=== PATIENT | female | born 2000 | race Caucasian/White ===

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

== ENCOUNTER → 2018-11-16 | Outpatient (REF) | payer MEDICAID ==
[2018-11-16 20:19] LABS: FREE T4 1.37 NG/DL (0.78-1.33); THYROID STIMULATING HORMONE 2.4 uIU/ML (0.463-3.98)
== END ==
LOC: M SFHCADAM 14:18
PROVIDERS: ATTEND Physician Assistant Medical
DX: E06.3 Autoimmune thyroiditis (principal)

== ENCOUNTER → 2018-11-30 | Outpatient (REF) | payer MEDICAID | LOC: M SFHCADAM 12:28 | PROVIDERS: ATTEND Family Medicine | DX: J02.9 Acute pharyngitis, unspecified (principal) ==

== ENCOUNTER → 2018-12-08 | Outpatient (REF) | payer MEDICAID | LOC: M SFHCADAM 12:23 | PROVIDERS: ATTEND Physician Assistant | DX: N30.00 Acute cystitis without hematuria (principal) ==

== ENCOUNTER → 2019-01-01 | Outpatient (REF) | payer MEDICAID | LOC: M SFHCADAM 16:00 | PROVIDERS: ATTEND Physician Assistant Medical | DX: N91.2 Amenorrhea, unspecified (principal) ==

== ENCOUNTER 2019-03-04 16:11 | Emergency (ER) | payer MEDICAID ==
[~2019-03-04] VITALS: Ht 157.5 cm; Wt 75.0 kg
[2019-03-04] MEDS ORDERED: [UNRECOGNIZED DRUG - OTHER] VI (16:19)
[2019-03-04] MEDS ORDERED: LEVO112T2 PO (16:19)
[2019-03-04] MEDS ORDERED: AZO-95TA3 PO (16:19)
[2019-03-04 16:39] LABS: BILIRUBIN, URINE MANUAL OBSCURED (NEGATIVE); GLUCOSE, URINE (UA) MANUAL OBSCURED mg/dL (NEGATIVE); KETONE, URINE MANUAL OBSCURED mg/dL (NEGATIVE); UROBILINOGEN, URINE MANUAL OBSCURED mg/dl (NORMAL)
[2019-03-04 16:41] LABS: URINE PREG TEST NEGATIVE (NEGATIVE)
[2019-03-04 16:42] LABS: BACTERIA, URINE SMALL AMOUNT; RBC, URINE 0-1 /hpf (0-3)
[2019-03-04] MEDS ORDERED: NS 1,000 ML IV ONE (16:45)
[2019-03-04 17:28] LABS: BASO % 0.7 % (0.0-1.0); EOS # 0.1 10^3/uL (0.0-0.5); HEMATOCRIT 38.8 % (36.0-47.0); HEMOGLOBIN 12.4 g/dl (12.0-15.5); LYMPH # 1.3 10^3/uL (1.5-5.0); LYMPH % 23.3 % (24.0-44.0); MEAN CORPUSCULAR HEMOGLOBIN 28.2 pg (27.0-33.0); MEAN CORPUSCULAR VOLUME 88.4 fl (80.0-96.0); MONO # 0.6 10^3/uL (0.0-0.8); MONO % 10.1 % (0.0-5.0); NEUTROPHILS # 3.5 10^3/uL (1.5-8.5); NEUTROPHILS % 63.7 % (36.0-66.0); PLATELET COUNT, AUTOMATED 245 10^3/uL (150-450); RED BLOOD COUNT 4.39 10^6/uL (4.00-5.40); WHITE BLOOD COUNT 5.5 10^3/uL (4.0-10.0)
[2019-03-04 17:58] LABS: ALBUMIN 3.9 GM/DL (3.2-5.2); ALT/SGPT 16 U/L (12-78); BILIRUBIN,DIRECT 0.2 MG/DL (0.0-0.2); BILIRUBIN,TOTAL 0.5 MG/DL (0.2-1.0); BLOOD UREA NITROGEN 13 MG/DL (7-18); CALCIUM LEVEL 9.1 MG/DL (8.5-10.1); CARBON DIOXIDE LEVEL 26 MEQ/L (21-32); CHLORIDE LEVEL 107 MEQ/L (98-107); CREATININE FOR GFR 0.94 MG/DL (0.55-1.30); GLUCOSE, FASTING 89 MG/DL (70-100); LIPASE 154 U/L (73-393); POTASSIUM SERUM 4.3 MEQ/L (3.5-5.1); SODIUM LEVEL 140 MEQ/L (136-145); TOTAL PROTEIN 7.6 GM/DL (6.4-8.2)
--- NOTE | 2019-03-04 18:27 | REPVR ---
PROCEDURE INFORMATION: Exam: CT Abdomen And Pelvis Without Contrast Exam date and time: 03/04/2019 5:01 PM Age: 18 years old Clinical indication: Abdominal pain; Flank; Left; Additional info: Left flank pain TECHNIQUE: Imaging protocol: Computed tomography of the abdomen and pelvis without contrast. Radiation optimization: All CT scans at this facility use at least one of these dose optimization techniques: automated exposure control; mA and/or kV adjustment per patient size (includes targeted exams where dose is matched to clinical indication); or iterative reconstruction. COMPARISON: CT ABD PELVIS WITH CONTRAST 05/15/2013 6:26 PM FINDINGS: Lungs: No lesions of the lung bases. Heart: There may be a pericardial effusion. Series 202 image 37, series 2 image 63. Liver: There are no focal liver lesions present. Gallbladder and bile ducts: The gallbladder is normal. Pancreas: The pancreas is normal. Spleen: The spleen is normal. Adrenals: The adrenal glands are normal. Kidneys and ureters: No renal calculi or hydronephrosis. The kidneys are normal. Stomach and bowel: There is no evidence of intestinal obstruction. Appendix: There may be surgical sutures along the medial cecum possibly post appendectomy. Intraperitoneal space: Unremarkable. No free air. No significant fluid collection. Vasculature: The aorta is normal. Lymph nodes: Unremarkable. No enlarged lymph nodes. Bladder: The bladder is unremarkable. Reproductive: Uterus and adnexa are not well assessed. Bones/joints: Unremarkable. No acute fracture. Soft tissues: Unremarkable. IMPRESSION: No acute findings in the abdomen or pelvis on this noncontrast examination. There may be a pericardial effusion. Electronically signed by: Ani Schneider On 03/04/2019 18:26:21 PM
[2019-03-04] MEDS ORDERED: CIPR-249 PO (18:50)
[2019-03-04 19:23] VITALS: BP 130/70
--- NOTE | 2019-03-06 12:52 | ED PDOC ---
Post-Departure Follow-Up ibeth patrick faxed formal report of ct abd/p for fu Geronimo Mckeon MD Mar 06, 2019 12:52
[2019-03-07] MEDS ORDERED: MACR100C43 PO (08:21)
== END 2019-03-04 19:27 | disposition home or self-care (01) ==
LOC: M ED 16:11
DX: R39.11 Hesitancy of micturition (principal); Z87.440 Personal history of urinary (tract) infections; E06.3 Autoimmune thyroiditis; Z79.890 Hormone replacement therapy

== ENCOUNTER → 2019-03-06 | Outpatient (REF) | payer MEDICAID ==
[~2019-03-06] MED LIST changes: +AZO-95TA3 PO; +CIPR-249 PO; +LEVO112T2 PO; +MACR100C43 PO; +[UNRECOGNIZED DRUG - OTHER] VI
[2019-03-06 20:00] LABS: CHLAMYDIA DNA AMPLIFICATION NEGATIVE (NEGATIVE); GC DNA AMPLIFICATION NEGATIVE (NEGATIVE)
== END ==
LOC: M SFHCADAM 17:20
PROVIDERS: ATTEND Physician Assistant
DX: N30.00 Acute cystitis without hematuria (principal)

== ENCOUNTER → 2019-03-09 | Outpatient (CLI) | payer MEDICAID ==
--- NOTE | 2019-03-09 20:50 | ECHO ---
DATE OF PROCEDURE: 03/09/2019 AGE: 18 GENDER: Female HEIGHT: 62 inches WEIGHT: 162 pounds BODY SURFACE AREA: 1.75 m2 PATIENT LOCATION: Outpatient. REFERRING PHYSICIAN: MODE Cuello INDICATION: Pericardial effusion. 2-D MEASUREMENTS: RV: 3.2 cm LV: 4.9 cm Septum: 0.8 cm Posterior wall: 0.8 cm Aortic root: 2.6 cm LA: 3.0 cm LVEF: 75% DOPPLER MEASUREMENTS AV; 1.5 m/s LVOT: 1.2 m/s MV-E: 105, A: 50, EA ratio: 2.1 Early mitral deceleration time: 158 E prime medial: 12 A prime medial: 8 E prime lateral: 16 Average E prime ratio: 7.5/PCWP: 11 mmHg PV: 0.8 m/s Pulmonary artery acceleration time: 130 ms PASP: 24 mmHg IVC: 1.0 cm COMMENTS Normal sinus rhythm without intraventricular conduction disturbance. M-mode and two-dimensional echocardiography was performed with pulsed, continuous wave, color flow and tissue Doppler studies. Normal left ventricular size, wall thickness and hyperkinetic wall motion. Normal left atrial size and Doppler assessment of LV diastolic function and estimated mean left atrial pressure. Normal right heart chamber sizes and motion with normal estimated pulmonary arterial pressure. Normal IVC size and collapse against an elevated central venous pressure. Normal-appearing aortic valve with trace insufficiency. Normal aortic root size. Normal-appearing mitral valve with normal leaflet excursion and no posterior systolic buckling and very mild mitral insufficiency (physiologic). Normal appearing tricuspid valve with trace insufficiency. Small pericardial effusion measuring 0.5 cm without evidence of cardiac chamber compression. No apparent intracardiac mass. MTDD
== END ==
LOC: M CARPUL 08:23
PROVIDERS: ATTEND Physician Assistant Medical
DX: I31.3 Pericardial effusion (noninflammatory) (principal)

== ENCOUNTER → 2019-03-09 | Outpatient (CLI) | payer MEDICAID ==
--- NOTE | 2019-03-09 16:51 | REP ---
Pelvic sonography: History: Urinary tract infection. Pelvic pain and tenderness. Findings: Transabdominal scanning is performed. Uterine dimensions are 10.6 x 3.8 x 5.5 cm. Uterus is somewhat retroflexed. Endometrial echo is 1.0 cm thick. Bladder chapa are smooth. Normal ovaries are seen bilaterally. Right ovary measures 3.5 x 2.1 x 2.4 cm. Left ovary dimensions are 2.2 x 1.1 x 2.6 cm. Doppler flow is present in both ovaries. Resistive indices are 0.55 on the right and 0.44 on the left. Impression: Somewhat retroflexed uterus. Otherwise unremarkable pelvic sonography. Electronically Signed by Marc Ramirez MD 03/10/2019 05:32 A
[2019-03-09 18:10] LABS: APPEARANCE, URINE CLEAR (CLEAR); BACTERIA, URINE AUTO NEGATIVE (NEGATIVE); BILIRUBIN, URINE AUTO NEGATIVE (NEGATIVE); BLOOD, URINE BLOOD NEGATIVE (NEGATIVE); COLOR, URINE STRAW (YELLOW); GLUCOSE, URINE (UA) AUTO NEGATIVE (NEGATIVE); KETONE, URINE AUTO TRACE mg/dL (NEGATIVE); LEUKOCYTE ESTERASE, URINE AUTO NEGATIVE (NEGATIVE); NITRITE, URINE AUTO NEGATIVE (NEGATIVE); PROTEIN, URINE AUTO NEGATIVE (NEGATIVE); RBC, URINE AUTO 0 /HPF (0-3); SPECIFIC GRAVITY URINE AUTO 1.005 (1.002-1.035); SQUAMOUS EPITHELIAL CELL UR AU 1 /HPF (0-6); UROBILINOGEN, URINE AUTO 0.2 mg/dL (0.0-2.0); WBC, URINE AUTO 1 /HPF (0-3)
== END ==
LOC: M RAD 15:06
PROVIDERS: ATTEND Physician Assistant Medical
DX: R10.2 Pelvic and perineal pain (principal); R30.0 Dysuria; R63.0 Anorexia; N30.00 Acute cystitis without hematuria

== ENCOUNTER 2019-04-09 16:18 | Emergency (ER) | payer MEDICAID ==
[~2019-04-09] VITALS: Ht 160 cm; Wt 74.4 kg
[2019-04-09] MEDS ORDERED: COLC1TAB13 PO (16:26)
[2019-04-09] MEDS ORDERED: PRED20TA PO (19:08)
[2019-04-09] MEDS ORDERED: PEPC1TAB5 PO (19:08)
[2019-04-09] MEDS ORDERED: GI COCKTAIL 50ML BTL(HYOSCYAMINE/MAALOX/LIDOCAINE VISCOUS)(1:3:1) PO ONE (19:15)
[2019-04-09 19:19] VITALS: BP 131/66
== END 2019-04-09 19:37 | disposition home or self-care (01) ==
LOC: M ED 16:18
DX: R21 Rash and other nonspecific skin eruption (principal); J02.9 Acute pharyngitis, unspecified; I30.9 Acute pericarditis, unspecified; Z79.899 Other long term (current) drug therapy

== ENCOUNTER → 2019-08-08 | Outpatient (REF) | payer MEDICAID ==
[~2019-08-08] MED LIST changes: +COLC1TAB13 PO; +PEPC1TAB5 PO; +PRED20TA PO
[2019-08-08 17:02] LABS: FREE T4 1.48 NG/DL (0.78-1.33); THYROID STIMULATING HORMONE 1.64 uIU/ML (0.463-3.98)
== END ==
LOC: M SFHCADAM 15:05
PROVIDERS: ATTEND Physician Assistant Medical
DX: E06.3 Autoimmune thyroiditis (principal)

== ENCOUNTER → 2019-12-14 | Outpatient (REF) | payer MEDICAID | LOC: M SFHCADAM 10:48 | PROVIDERS: ATTEND Physician Assistant | DX: N89.8 Other specified noninflammatory disorders of vagina (principal); R82.90 Unspecified abnormal findings in urine ==

== ENCOUNTER → 2020-04-21 | Outpatient (REF) | payer MEDICAID ==
[~2020-04-21] MED LIST changes: +COLC0.6T47 PO; -COLC1TAB13 PO
[2020-04-21 12:58] LABS: FREE T4 1.19 NG/DL (0.76-1.46); THYROID STIMULATING HORMONE 2.94 uIU/ML (0.358-3.740)
== END ==
LOC: M SFHCADAM 10:21
PROVIDERS: ATTEND Physician Assistant Medical
DX: R00.2 Palpitations (principal)

== ENCOUNTER 2020-09-20 02:55 | Outpatient (CLI) | payer MEDICAID ==
[~2020-09-20] VITALS: Ht 160 cm; Wt 89.8 kg
[2020-09-20 03:15] VITALS: BP 129/66
[2020-09-20 03:55] VITALS: BP 140/87
[2020-09-20] MEDS ORDERED: LR 1,000 ML IV SCH (03:55)
[2020-09-20] MEDS ORDERED: LACTATED RINGER'S 1000 ML IV ONE (03:55)
--- NOTE | 2020-09-20 04:05 | IPNPDOC ---
Text Note Date of Service The patient was seen on 09/20/20. NOTE Outpatient 19yo QUINN 12/17/20. Presents @ 27w4d with complaints of mild cramping, nausea, headache, inability to urinate. Denies LOF, bleeding or regular UC. History significant for prior section 2016 for preeclampsia @ 36w. Pt is seen in [place] by Dr Shaw. Labile blood pressures, 140/87 No apparent distress Cat I tracing, mild uterine irritability. Hydrate, labs and reassess. Jacqueline Orlando CNM Sep 20, 2020 04:05
[2020-09-20 05:38] VITALS: BP 130/67
[2020-09-20 05:49] LABS: HEMATOCRIT 30.4 % (36.0-47.0); HEMOGLOBIN 10.3 g/dl (12.0-15.5); MEAN CORPUSCULAR HEMOGLOBIN 30.6 pg (27.0-33.0); MEAN CORPUSCULAR HGB CONC 33.9 g/dl (32.0-36.5); MEAN CORPUSCULAR VOLUME 90.2 fl (80.0-96.0); PLATELET COUNT, AUTOMATED 227 10^3/uL (150-450); RED BLOOD COUNT 3.37 10^6/uL (4.00-5.40); WHITE BLOOD COUNT 11.5 10^3/uL (4.0-10.0)
[2020-09-20 05:52] LABS: APPEARANCE, URINE CLEAR (CLEAR); BACTERIA, URINE AUTO NEGATIVE (NEGATIVE); BILIRUBIN, URINE AUTO NEGATIVE (NEGATIVE); BLOOD, URINE BLOOD NEGATIVE (NEGATIVE); COLOR, URINE YELLOW (YELLOW); GLUCOSE, URINE (UA) AUTO NEGATIVE (NEGATIVE); KETONE, URINE AUTO NEGATIVE (NEGATIVE); LEUKOCYTE ESTERASE, URINE AUTO NEGATIVE (NEGATIVE); NITRITE, URINE AUTO NEGATIVE (NEGATIVE); PROTEIN, URINE AUTO NEGATIVE (NEGATIVE); RBC, URINE AUTO 0 /HPF (0-3); SQUAMOUS EPITHELIAL CELL UR AU 0 /HPF (0-6); UROBILINOGEN, URINE AUTO 0.2 mg/dL (0.0-2.0); WBC, URINE AUTO 0 /HPF (0-3)
[2020-09-20 06:21] LABS: ALBUMIN 2.8 GM/DL (3.2-5.2); ALT/SGPT 15 U/L (12-78); BILIRUBIN,TOTAL 0.2 MG/DL (0.2-1.0); BLOOD UREA NITROGEN 7 MG/DL (7-18); CALCIUM LEVEL 8.4 MG/DL (8.5-10.1); CARBON DIOXIDE LEVEL 22 MEQ/L (21-32); CHLORIDE LEVEL 110 MEQ/L (98-107); CREATININE FOR GFR 0.59 MG/DL (0.55-1.30); GLOMERULAR FILTRATION RATE > 60.0 (>60); GLUCOSE, FASTING 86 MG/DL (70-100); LDH LACTATE DEHYDROGENASE 77 U/L (84-246); SODIUM LEVEL 141 MEQ/L (136-145); TOTAL PROTEIN 6.4 GM/DL (6.4-8.2); URIC ACID 3.8 MG/DL (2.6-6.0)
[2020-09-20 06:21] LABS: CREATININE,RANDOM URINE 84.2 MG/DL; TOTAL PROTEIN,RANDOM URINE 8.6 MG/DL (0.0-12.0)
[2020-09-20] MEDS ORDERED: FERR325T3 PO (07:07)
[2020-09-20] MEDS ORDERED: PRENTAB9 PO (07:07)
[2020-09-20] MEDS ORDERED: LEVO125T4 PO (07:07)
[2020-09-20] MEDS ORDERED: ECOT81TA5 PO (07:07)
== END 2020-09-20 09:47 | disposition home or self-care (01) ==
LOC: M LDO 02:55
PROVIDERS: ATTEND Advanced Practice Midwife
DX: O26.892 Other specified pregnancy related conditions, second trimester (principal); R25.2 Cramp and spasm; R11.0 Nausea; R33.9 Retention of urine, unspecified; R51.9 Headache, unspecified; O34.211 Maternal care for low transverse scar from previous cesarean delivery; Z87.59 Personal history of other complications of pregnancy, childbirth and the puerperium; Z79.899 Other long term (current) drug therapy; Z3A.27 27 weeks gestation of pregnancy

== ENCOUNTER → 2020-10-15 | Outpatient (REF) | payer MEDICAID ==
[~2020-10-15] MED LIST changes: +ECOT81TA5 PO; +FERR325T3 PO; +LEVO125T4 PO; +PRENTAB9 PO
== END ==
LOC: M SFHCADAM 16:51
PROVIDERS: ATTEND Family Medicine
DX: R82.90 Unspecified abnormal findings in urine (principal)

== ENCOUNTER → 2021-03-02 | Outpatient (REF) | payer MEDICAID ==
[2021-03-02 17:50] LABS: FREE T4 1.59 NG/DL (0.76-1.46); THYROID STIMULATING HORMONE 0.008 uIU/ML (0.358-3.740)
== END ==
LOC: M SFHCADAM 14:17
PROVIDERS: ATTEND Physician Assistant Medical
DX: E06.3 Autoimmune thyroiditis (principal)

== ENCOUNTER → 2021-03-26 | Outpatient (REF) | payer MEDICAID ==
[2021-03-26 18:03] LABS: FREE T4 1.3 NG/DL (0.76-1.46); THYROID STIMULATING HORMONE 0.368 uIU/ML (0.358-3.740)
== END ==
LOC: M SFHCPLAZ 13:05
PROVIDERS: ATTEND Physician Assistant Medical
DX: E06.3 Autoimmune thyroiditis (principal)

== ENCOUNTER → 2021-07-17 | Outpatient (REF) | payer MEDICAID | LOC: M SFHCPLAZ 17:31 | PROVIDERS: ATTEND Physician Assistant | DX: R05.9 Cough, unspecified (principal) ==

== ENCOUNTER → 2022-04-08 | Outpatient (REF) | payer MEDICAID ==
[2022-04-08 15:51] LABS: FREE T4 1.59 NG/DL (0.89-1.76); THYROID STIMULATING HORMONE 0.048 uIU/ML (0.55-4.78)
== END ==
LOC: M LABDRWAD 14:50 → M LAB REF 14:50
PROVIDERS: ATTEND Nurse Practitioner Family
DX: E03.9 Hypothyroidism, unspecified (principal)

== ENCOUNTER → 2022-05-05 | Outpatient (REF) | payer MEDICAID ==
[2022-05-05 13:43] LABS: ALBUMIN 4.2 G/DL (3.2-5.2); ALKALINE PHOSPHATASE 81 U/L (46-116); ALT/SGPT 20 U/L (7.0-40); AST/SGOT 13 U/L (<34); BASO % 0.7 % (0.0-1.0); BILIRUBIN,TOTAL 0.5 MG/DL (0.3-1.2); BLOOD UREA NITROGEN 14 MG/DL (9-23); CALCIUM LEVEL 9.4 MG/DL (8.5-10.1); CARBON DIOXIDE LEVEL 24 MMOL/L (20-31); CHLORIDE LEVEL 107 MMOL/L (98-107); CREATININE FOR GFR 0.83 MG/DL (0.55-1.30); EOS # 0.3 10^3/uL (0.0-0.5); EOS % 4.3 % (0.0-3.0); FREE T4 1.24 NG/DL (0.89-1.76); GLOMERULAR FILTRATION RATE > 60.0 (>60); GLUCOSE, FASTING 88 MG/DL (60-100); HEMOGLOBIN 12.8 g/dl (12.0-15.5); LYMPH # 2.1 10^3/uL (1.5-5.0); LYMPH % 34.3 % (24.0-44.0); MEAN CORPUSCULAR HEMOGLOBIN 26.1 pg (27.0-33.0); MEAN CORPUSCULAR HGB CONC 31.2 g/dl (32.0-36.5); MEAN CORPUSCULAR VOLUME 83.7 fl (80.0-96.0); MONO # 0.5 10^3/uL (0.0-0.8); MONO % 8.6 % (2.0-8.0); NEUTROPHILS # 3.1 10^3/uL (1.5-8.5); NEUTROPHILS % 51.9 % (36.0-66.0); PLATELET COUNT, AUTOMATED 253 10^3/uL (150-450); POTASSIUM SERUM 4.7 MMOL/L (3.5-5.1); SODIUM LEVEL 138 MMOL/L (136-145); THYROID STIMULATING HORMONE 0.669 uIU/ML (0.55-4.78); TOTAL PROTEIN 7.4 G/DL (5.7-8.2)
[2022-05-05 13:44] LABS: PROLACTIN 5.39 NG/ML
== END ==
LOC: M SFHCADAM 08:47
PROVIDERS: ATTEND Physician Assistant Medical
DX: N64.3 Galactorrhea not associated with childbirth (principal); K59.01 Slow transit constipation; E06.3 Autoimmune thyroiditis; F33.1 Major depressive disorder, recurrent, moderate

== ENCOUNTER → 2022-08-10 | Outpatient (REF) | payer MEDICAID ==
[2022-08-10 13:56] LABS: THYROID STIMULATING HORMONE 6.585 uIU/ML (0.55-4.78)
[2022-08-10 13:57] LABS: FREE T4 1.08 NG/DL (0.89-1.76)
== END ==
LOC: M SFHCADAM 09:16
PROVIDERS: ATTEND Physician Assistant Medical
DX: E06.3 Autoimmune thyroiditis (principal)

== ENCOUNTER → 2022-08-23 | Outpatient (REF) | payer MEDICAID ==
[2022-08-23 13:36] LABS: BASO # 0.1 10^3/uL (0.0-0.2); BASO % 0.9 % (0.0-1.0); EOS # 0.2 10^3/uL (0.0-0.5); HEMATOCRIT 37.4 % (36.0-47.0); LYMPH % 30.9 % (24.0-44.0); MEAN CORPUSCULAR HEMOGLOBIN 27.5 pg (27.0-33.0); MEAN CORPUSCULAR HGB CONC 32.1 g/dl (32.0-36.5); MEAN CORPUSCULAR VOLUME 85.6 fl (80.0-96.0); MONO # 0.5 10^3/uL (0.0-0.8); NEUTROPHILS # 3.8 10^3/uL (1.5-8.5); NEUTROPHILS % 56.9 % (36.0-66.0); PLATELET COUNT, AUTOMATED 271 10^3/uL (150-450); RED BLOOD COUNT 4.37 10^6/uL (4.00-5.40); WHITE BLOOD COUNT 6.6 10^3/uL (4.0-10.0)
[2022-08-23 13:58] LABS: IRON (FE) 25 UG/DL (50-170); PERCENT SATURATION 6.6 % (13.2-45.0); TOTAL IRON BINDING CAPACITY 378 UG/DL (250-425)
[2022-08-23 13:59] LABS: ALKALINE PHOSPHATASE 81 U/L (46-116); ALT/SGPT 15 U/L (7.0-40); AST/SGOT < 8 U/L (<34); BILIRUBIN,TOTAL 0.4 MG/DL (0.3-1.2); BLOOD UREA NITROGEN 15 MG/DL (9-23); CALCIUM LEVEL 9.1 MG/DL (8.5-10.1); CARBON DIOXIDE LEVEL 24 MMOL/L (20-31); CHLORIDE LEVEL 107 MMOL/L (98-107); CREATININE FOR GFR 0.79 MG/DL (0.55-1.30); FERRITIN 5.1 NG/ML (7.3-270.7); GLOMERULAR FILTRATION RATE > 60.0 (>60); GLUCOSE, FASTING 88 MG/DL (60-100); POTASSIUM SERUM 4.7 MMOL/L (3.5-5.1); SODIUM LEVEL 137 MMOL/L (136-145)
[2022-08-23 14:00] LABS: VITAMIN B12 LEVEL 355 PG/ML (211-911)
== END ==
LOC: M SFHCADAM 09:36
PROVIDERS: ATTEND Physician Assistant
DX: R23.3 Spontaneous ecchymoses (principal); Z86.39 Personal history of other endocrine, nutritional and metabolic disease

== ENCOUNTER → 2022-10-06 | Outpatient (REF) | payer MEDICAID ==
[2022-10-06 16:43] LABS: FREE T4 1.38 NG/DL (0.89-1.76); THYROID STIMULATING HORMONE 3.387 uIU/ML (0.55-4.78)
== END ==
LOC: M SFHCADAM 13:39
PROVIDERS: ATTEND Physician Assistant Medical
DX: E06.3 Autoimmune thyroiditis (principal)

== ENCOUNTER → 2022-10-08 | Outpatient (REF) | payer MEDICAID | LOC: M SFHCADAM 17:10 | PROVIDERS: ATTEND Physician Assistant | DX: N30.01 Acute cystitis with hematuria (principal) ==

== ENCOUNTER → 2022-10-25 | Outpatient (CLI) | payer MEDICAID, OTHER | LOC: M RAD 15:20 | PROVIDERS: ATTEND Legal Medicine | DX: N93.8 Other specified abnormal uterine and vaginal bleeding (principal); R10.2 Pelvic and perineal pain ==

== ENCOUNTER → 2023-08-02 | Outpatient (REF) | payer OTHER, MEDICAID ==
[2023-08-02 18:06] LABS: FREE T4 1.61 NG/DL (0.89-1.76)
[2023-08-02 18:07] LABS: THYROID STIMULATING HORMONE 0.049 uIU/ML (0.55-4.78)
== END ==
LOC: M SFHCADAM 14:06
PROVIDERS: ATTEND Physician Assistant Medical
DX: E06.3 Autoimmune thyroiditis (principal)

== ENCOUNTER → 2023-10-11 | Outpatient (REF) | payer OTHER, MEDICAID ==
[2023-10-11 19:56] LABS: BASO # 0.1 10^3/uL (0.0-0.2); BASO % 0.7 % (0.0-1.0); EOS # 0.2 10^3/uL (0.0-0.5); EOS % 2.8 % (0.0-3.0); HEMATOCRIT 37.4 % (36.0-47.0); LYMPH # 2.5 10^3/uL (1.5-5.0); LYMPH % 33.8 % (24.0-44.0); MEAN CORPUSCULAR HEMOGLOBIN 23.2 pg (27.0-33.0); MEAN CORPUSCULAR HGB CONC 29.4 g/dl (32.0-36.5); MEAN CORPUSCULAR VOLUME 78.9 fl (80.0-96.0); MONO # 0.5 10^3/uL (0.0-0.8); MONO % 6.2 % (2.0-8.0); NEUTROPHILS # 4.2 10^3/uL (1.5-8.5); NEUTROPHILS % 56.2 % (36.0-66.0); PLATELET COUNT, AUTOMATED 359 10^3/uL (150-450); RED BLOOD COUNT 4.74 10^6/uL (4.00-5.40); WHITE BLOOD COUNT 7.4 10^3/uL (4.0-10.0)
[2023-10-11 20:04] LABS: ERYTHROCYTE SEDIMENTATION RATE 51 mm/hr (0-20)
[2023-10-11 20:29] LABS: C REACTIVE PROTEIN QUANTITATIV < 0.40 MG/DL (<1.0)
[2023-10-11 20:31] LABS: ALBUMIN 4.1 G/DL (3.2-5.2); ALKALINE PHOSPHATASE 103 U/L (46-116); ALT/SGPT 24 U/L (7.0-40); AST/SGOT 14 U/L (<34); BILIRUBIN,TOTAL 0.3 MG/DL (0.3-1.2); BLOOD UREA NITROGEN 17 MG/DL (9-23); CALCIUM LEVEL 9.7 MG/DL (8.5-10.1); CARBON DIOXIDE LEVEL 27 MMOL/L (20-31); CHLORIDE LEVEL 106 MMOL/L (98-107); CREATININE FOR GFR 0.83 MG/DL (0.55-1.30); GLOMERULAR FILTRATION RATE > 60.0 (>60); GLUCOSE, FASTING 83 MG/DL (60-100); POTASSIUM SERUM 4.6 MMOL/L (3.5-5.1); SODIUM LEVEL 139 MMOL/L (136-145); TOTAL PROTEIN 7.6 G/DL (5.7-8.2)
[2023-10-11 20:32] LABS: COMPLEMENT C3 135.3 MG/DL (82.0-160.0); COMPLEMENT C4 27.8 MG/DL (12-36); FREE T4 1.67 NG/DL (0.89-1.76); RHEUMATOID FACTOR QUANT 7.4 IU/ML (<14); THYROID STIMULATING HORMONE 0.056 uIU/ML (0.55-4.78)
[2023-10-11 20:33] LABS: TOTAL 25(OH) VITAMIN D 31.4 NG/ML (20.0-100.0)
== END ==
LOC: M SFHCADAM 16:47
PROVIDERS: ATTEND Physician Assistant Medical
DX: F31.81 Bipolar II disorder (principal); G43.909 Migraine, unspecified, not intractable, without status migrainosus; R52 Pain, unspecified; F42.9 Obsessive-compulsive disorder, unspecified

== ENCOUNTER → 2023-12-23 | Outpatient (REF) | payer OTHER, MEDICAID ==
[2023-12-23 13:37] LABS: THYROID STIMULATING HORMONE 5.765 uIU/ML (0.55-4.78)
[2023-12-23 13:38] LABS: FREE T4 1.34 NG/DL (0.89-1.76)
== END ==
LOC: M SFHCADAM 09:16
PROVIDERS: ATTEND Physician Assistant Medical
DX: E06.3 Autoimmune thyroiditis (principal)

== ENCOUNTER → 2024-01-25 | Outpatient (CLI) | payer OTHER | LOC: M CARPUL 16:22 | PROVIDERS: ATTEND Physician Assistant Medical | DX: R07.9 Chest pain, unspecified (principal); Z86.79 Personal history of other diseases of the circulatory system; I36.1 Nonrheumatic tricuspid (valve) insufficiency; I31.39 Other pericardial effusion (noninflammatory) ==

== ENCOUNTER → 2024-10-05 | Outpatient (REF) | payer OTHER, MEDICAID ==
[2024-10-05 18:51] LABS: FREE T4 1.51 NG/DL (0.89-1.76)
== END ==
LOC: M SFHCADAM 13:07
PROVIDERS: ATTEND Physician Assistant Medical
DX: E06.3 Autoimmune thyroiditis (principal)

== ENCOUNTER → 2024-11-06 | Outpatient (REF) | payer OTHER, MEDICAID ==
[2024-11-06 20:03] LABS: BASO # 0.0 10^3/uL (0.0-0.2); BASO % 0.5 % (0.0-1.0); EOS # 0.1 10^3/uL (0.0-0.5); EOS % 1.4 % (0.0-3.0); LYMPH # 1.9 10^3/uL (1.5-5.0); LYMPH % 26.0 % (24.0-44.0); MONO # 0.5 10^3/uL (0.0-0.8); MONO % 6.7 % (2.0-8.0); NEUTROPHILS # 4.8 10^3/uL (1.5-8.5); NEUTROPHILS % 65.1 % (36.0-66.0); PLATELET COUNT, AUTOMATED 292 10^3/uL (150-450)
[2024-11-06 20:05] LABS: VITAMIN B12 LEVEL 445 PG/ML (211-911)
[2024-11-06 20:06] LABS: IRON (FE) 44 UG/DL (50-170); PERCENT SATURATION 13.3 % (13.2-45.0)
[2024-11-06 20:08] LABS: ALT/SGPT 17 U/L (7.0-40); AST/SGOT 14 U/L (<34); CALCIUM LEVEL 9.9 MG/DL (8.5-10.1); CARBON DIOXIDE LEVEL 26 MMOL/L (20-31); CHLORIDE LEVEL 105 MMOL/L (98-107); CREATININE FOR GFR 0.95 MG/DL (0.55-1.30); FREE T4 1.79 NG/DL (0.89-1.76); GLOMERULAR FILTRATION RATE 85.3 (>60); POTASSIUM SERUM 5.1 MMOL/L (3.5-5.1); SODIUM LEVEL 139 MMOL/L (136-145)
[2024-11-06 20:11] LABS: C REACTIVE PROTEIN QUANTITATIV < 0.50 MG/DL (<1.0)
[2024-11-06 20:12] LABS: ERYTHROCYTE SEDIMENTATION RATE 20 mm/hr (0-20)
== END ==
LOC: M SFHCADAM 11:37
PROVIDERS: ATTEND Physician Assistant Medical
DX: R10.11 Right upper quadrant pain (principal); R59.1 Generalized enlarged lymph nodes

== ENCOUNTER → 2024-11-28 | Outpatient (CLI) | payer OTHER ==
[~2024-11-28] MED LIST changes: -COLC0.6T47 PO; +COLC0.6T53 PO
== END ==
LOC: M WHC 07:08
PROVIDERS: ATTEND Physician Assistant Medical
DX: R10.11 Right upper quadrant pain (principal)

== ENCOUNTER → 2024-11-30 | Outpatient (CLI) | payer OTHER ==
[2024-11-30 10:32] LABS: BASO # 0.1 10^3/uL (0.0-0.2); BASO % 0.8 % (0.0-1.0); EOS # 0.1 10^3/uL (0.0-0.5); EOS % 1.5 % (0.0-3.0); LYMPH # 1.8 10^3/uL (1.5-5.0); LYMPH % 30.0 % (24.0-44.0); MONO # 0.4 10^3/uL (0.0-0.8); MONO % 5.9 % (2.0-8.0); NEUTROPHILS # 3.8 10^3/uL (1.5-8.5); NEUTROPHILS % 61.6 % (36.0-66.0); PLATELET COUNT, AUTOMATED 327 10^3/uL (150-450)
[2024-11-30 10:38] LABS: ERYTHROCYTE SEDIMENTATION RATE 22 mm/hr (0-20)
[2024-11-30 10:57] LABS: C REACTIVE PROTEIN QUANTITATIV < 0.50 MG/DL (<1.0); COMPLEMENT C4 28.9 MG/DL (12-36)
[2024-11-30 10:58] LABS: ALT/SGPT 22 U/L (7.0-40); AST/SGOT 17 U/L (<34); CALCIUM LEVEL 9.8 MG/DL (8.5-10.1); CARBON DIOXIDE LEVEL 25 MMOL/L (20-31); CHLORIDE LEVEL 103 MMOL/L (98-107); CREATININE FOR GFR 0.90 MG/DL (0.55-1.30); GLOMERULAR FILTRATION RATE > 90.0 (>60); POTASSIUM SERUM 4.6 MMOL/L (3.5-5.1); RHEUMATOID FACTOR QUANT 5.8 IU/ML (<14); SODIUM LEVEL 137 MMOL/L (136-145)
== END ==
LOC: M CARPUL 08:43
PROVIDERS: ATTEND Physician Assistant Medical
DX: I31.39 Other pericardial effusion (noninflammatory) (principal)

== ENCOUNTER → 2025-01-17 | Outpatient (CLI) | payer OTHER | LOC: M CARPUL 15:05 | PROVIDERS: ATTEND Internal Medicine Cardiovascular Disease | DX: I31.39 Other pericardial effusion (noninflammatory) (principal) ==